=== PATIENT | female | born 1995 | race Two or more races ===

== ENCOUNTER 2024-06-14 23:56 | Emergency (ER) | payer MEDICAID ==
[~2024-06-14] VITALS: Ht 154.9 cm; Wt 65.0 kg
--- NOTE | 2024-06-15 01:03 | DVH ---
CLINICAL INDICATION: r/o fb stable TECHNIQUE: 3 views of the left foot. Comparison: None FINDINGS/IMPRESSION: There is no evidence of acute fracture or dislocation. No radiopaque foreign body identified.
[2024-06-15] MEDS: TETANUS-DIPTH-ACEL PERTUSSIS 0.5ML SYR Tdap IM ONE (01:48)
--- NOTE | 2024-06-15 01:48 | ED.PDOC ---
Back pain HPI HPI Comments THIS IS A 29-YEAR-OLD FEMALE PRESENTS TO THE ED CHIEF COMPLAINT LEFT FOOT INJURY. STATES SHE WAS WALKING AROUND MOTHER'S BIRD DOWN HOUSE AND STEPPED ON A COLE STAPLE. HE IS HERE FOR A TETANUS SHOT BECAUSE HER MOTHER SAID SHE WILL GET LOCKED JAW. REPORTS PAIN LEVEL 2/5 ON PAIN SCALE DESCRIBED THROBBING.. FEVERS, CHILLS, REDNESS, DRAINAGE, SWELLING, NAUSEA OR VOMITING. Chief Complaint: Lower Extremity Time Seen by MD: 00:17 Reviewed Notes: Nurses Notes, Medications, Allergies Allergies: Coded Allergies: Amoxicillin (Verified Allergy, Unknown, 06/15/24) Information Source: Patient Mode of Arrival: Ambulatory Family History Family History: Reviewed,noncontributory to illness Social History Smoker: Non-Smoker Alcohol: Denies ETOH Use Drugs: Denies Drug Use Constitutional: denies: chills, diaphoresis, fatigue, fever, malaise, sweats, weakness, others EENTM: denies: blurred vision, double vision, ear bleeding, ear discharge, ear drainage, ear pain, ear ringing, eye pain, eye redness, hearing loss, mouth pain, mouth swelling, nasal discharge, nose bleeding, nose congestion, nose pain, photophobia, tearing, throat pain, throat swelling, voice changes, others Respiratory: denies: cough, hemoptysis, orthopnea, SOB at rest, shortness of breath, SOB with excertion, stridor, wheezing, others Cardiovascular: denies: chest pain, dizzy spells, diaphoresis, Dyspnea on exertion, edema, irregular heart beat, left arm pain, lightheadedness, palpitations, PND, syncope, others Gastrointestinal: denies: abdomen distended, abdominal pain, blood streaked bowels, constipated, diarrhea, dysphagia, difficulty swallowing, hematemesis, melena, nausea, poor appetite, poor fluid intake, rectal bleeding, rectal pain, vomiting, others Genitourinary: denies: abnormal vagina bleeding, burning, dyspareunia, dysuria, flank pain, frequency, hematuria, incontinence, pain, , vagina discharge, urgency, others Neurological: denies: dizziness, fainting, headache, left sided numbness, left sided weakness, numbness, paresthesia, pre-existing deficit, right sided numbness, right sided weakness, seizure, speech problems, tingling, tremors, weakness, others Musculoskeletal: denies: back pain, gout, joint pain, joint swelling, muscle pain, muscle stiffness, neck pain, others Integumetry: 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: 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); denies: bruises, change in color, change in hair/nails, dryness, laceration, lesions, lumps, rash, others Allergic/Immunocompromised: denies: Difficulty Healing, Frequent Infections, Hives, Itching, others Hematologic/Lymphatic: denies: anemia, blood clots, easy bleeding, easy bruising, swollen glands, others Endocrine: denies: excessive hunger, excessive sweating, excessive thirst, excessive urination, flushing, intolerance to cold, intolerance to heat, unexplained weight gain, unexplained weight loss, others Psychiatric: denies: anxiety, bipolar disorder, depression, hopeless, panic disorder, schizophrenia, sleepless, suicidal, others Physical Exam General Appearance: No Apparent Distress, Normal HEENT: Pharynx Normal Neck: Full Range of Motion, Non-Tender Respiratory: Lungs Clear, No Respiratory Distress, Normal Breath Sounds Cardiovascular: No Murmur, Normal Peripheral Pulses, Regular Rate/Rhythm Breast Exam: Deferred Gastrointestinal: Non Tender, Soft Genitalia: Deferred Pelvic: Deferred Rectal: Deferred Extremities: Normal capillary refill, Normal inspection, Normal range of motion, Non-tender, No pedal edema Musculoskeletal : Apperance: Normal Neurologic: Alert, 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 STREAKING) Lymphatic: No Adenopathy Was a procedure done? Was a procedure done?: No Back Pain Differential Dx Differential Diagnosis: Fracture, Musculoskeletal Pain, Other (FOREIGN BODY) X-Ray, Labs, Meds, VS Vital Signs Date Time Temp Pulse Resp B/P (MAP) Pulse Ox O2 Delivery O2 Flow Rate FiO2 06/15/24 01:51 97.7 86 19 123/76 (92) 99 97.7 06/15/24 01:51 86 19 99 Room Air 06/15/24 00:15 97.7 107 16 135/84 (101) 97 Current Medications Medications (Trade) Dose Ordered Sig/Haris Route Start Time Stop Time Status Last Admin Diphtheria/ Tetanus/Acell Pertussis (Boostrix T-Dap) 0.5 ml ONCE ONCE IM 06/15/24 01:15 06/15/24 01:16 DC 06/15/24 01:48 X-Ray, Labs, Meds, VS Comment LEFT FOOT X-RAY SHOWS NO ACUTE FINDINGS OR FOREIGN BODY. PATIENT GIVEN TDAP. ADVISED HER ON RICE. FOLLOW UP WITH PCP IN 2-3 DAYS NECESSARY. ER RETURN [facility] GIVEN PATIENT INDICATED UNDERSTANDING AGREES WITH DISCHARGE PLAN OF CARE Time of 1ST Reevaluation: 01:48 Reevaluation 1ST: Improved Patient Education/Counseling: Diagnosis, Treatment, Prognosis, Need For Follow Up Family Education/Counseling: No Family Present Departure 1 Departure Time of Disposition: 01:48 Impression: Primary Impression: Injury of foot, left, superficial Qualified Codes: S90.922A - Unspecified superficial injury of left foot, initial encounter Disposition: 01 HOME / SELF CARE / HOMELESS Condition: Stable Discharged With: Self Critical Care Note Critical Care Time?: No Stability Stability form required: KAYLA Barraza Jun 15, 2024 01:48
[2024-06-15 01:51] VITALS: BP 123/76; PULSE 86; RESP 19; TEMP 97.7; O2SAT 99
== END 2024-06-15 01:57 | disposition home or self-care (01) ==
LOC: ER 06-15
DX: S90.922A Unspecified superficial injury of left foot, initial encounter (principal); R50.9 Fever, unspecified; R11.2 Nausea with vomiting, unspecified; Z23 Encounter for immunization; Z88.8 Allergy status to other drugs, medicaments and biological substances; W22.8XXA Striking against or struck by other objects, initial encounter; Y93.01 Activity, walking, marching and hiking; Y92.009 Unspecified place in unspecified non-institutional (private) residence as the place of occurrence of the external cause; Y99.8 Other external cause status
CPT/HCPCS: 73630; 90471; 90715